=== PATIENT | female | born 1955 | race Caucasian/White ===

== ENCOUNTER 2017-09-02 08:34 | Day surgery (SDC) | payer MEDICARE, MEDICAID ==
[2017-09-02] MEDS ORDERED: Propofol 200 MG/20 ML SDV ONE (09:59)
[2017-09-02] MEDS ORDERED: Midazolam 1 MG/ML 2 ML SDV ONE (09:59)
[2017-09-02] MEDS ORDERED: fentaNYL 100 MCG/2 ML SDV ONE (09:59)
[2017-09-02] MEDS ORDERED: Lactated Ringers 1,000 ML IV ONE (10:00)
[2017-09-02] MEDS ORDERED: Cyanocobalamin (Vitamin B12) 1,000 MCG/ML SDV IM ONE (10:00)
[2017-09-02] MEDS ORDERED: Glycopyrrolate 0.2 MG/ML 2 ML SDV IVPUSH ONE (10:30)
[2017-09-02] MEDS ORDERED: MVI, Adult with Vitamin K 10 ML, Thiamine 200 MG, Chromium/Copper/Mang/Selen/Zn 1 ML in... IV ONE ×4 (11:00)
--- NOTE | 2017-09-06 23:58 | OR ---
DATE OF PROCEDURE: 09/02/2017 PREOPERATIVE DIAGNOSIS: Gastroesophageal reflux seen on upper GI x-ray. POSTOPERATIVE DIAGNOSIS: Normal examination status post partial gastrectomy with Maria G-en-Y gastrojejunostomy. OPERATIVE PROCEDURE: Upper GI endoscopy. ANESTHESIA: IV sedation. INDICATION FOR PROCEDURE: This is a 62-year-old status post a partial gastrectomy for recurrent gastroesophageal reflux disease with reconstruction with a Maria G-en-Y gastrojejunostomy. She has had complaints of some heartburn and an upper GI x-ray showed quite a bit of reflux, although there was distally no obstruction of flow beyond the gastrojejunostomy per se and the area did eventually empty well. The plan is to proceed with an upper GI endoscopy with biopsies and/or dilation as indicated. Potential risks including bleeding and perforation were discussed, and the patient wishes to proceed. DESCRIPTION OF PROCEDURE: The patient was taken to the operating room and placed in a left lateral decubitus position. IV sedation was administered, after which the upper GI endoscope was passed orally through the length of the esophagus and into the area of the gastric pouch, gastrojejunostomy and from there to the Maria G limb for roughly 30 cm. Overall, there were no abnormalities noted. There were no areas of mucosal inflammation. No stricturing and no bile leak extending up into the Maria G limb. Given this, the scope was then withdrawn. The above findings reconfirmed and the procedure was then concluded. The patient presently is on omeprazole, ranitidine, and Carafate. We will have her continue those as certainly inflammation at this point. Once we are suspicious that we are dealing with more of an esophageal spasm, we will give her a trial of Levsin 0.125 mg q.i.d. and have her see Bell Collado PA-C, back in roughly 1 month. If she is still having problems at that point, a gastroenterology referral for consideration of esophageal manometry may be warranted and in that case, we may be dealing more with an esophageal motility disorder. Bandar Wilkerson MD /[id number]
== END 2017-09-02 12:20 | disposition home or self-care (01) ==
LOC: JP.SDS 08:34
PROVIDERS: ATTEND Surgery
DX: K21.9 Gastro-esophageal reflux disease without esophagitis (principal); I10 Essential (primary) hypertension; F32.9 Major depressive disorder, single episode, unspecified; Z90.3 Acquired absence of stomach [part of]; Z88.8 Allergy status to other drugs, medicaments and biological substances
CPT/HCPCS: 43235; J2250; J2704; J3010; J3411; J3420; J7120; J3490